=== PATIENT | male | born 1965 | race Caucasian/White ===

== ENCOUNTER → 2022-06-07 | Outpatient (CLI) | payer BC ==
[~2022-06-07] MED LIST: ALPR.5 PO; CEPH500 PO; ESCI10 PO; Percocet 5-3251 EACH PO; Prinivil10 MG PO
== END | disposition home or self-care (01) ==
LOC: LAB SHORT 11:01 → PLD 11:01
DX: D22.5 Melanocytic nevi of trunk (principal); D36.17 Benign neoplasm of peripheral nerves and autonomic nervous system of trunk, unspecified
CPT/HCPCS: 88305